=== PATIENT | female | born 2000 | race Two or more races ===

== ENCOUNTER 2025-01-14 | Emergency (ER) | payer MEDICAID, OTHER ==
[~2025-01-14] VITALS: Ht 160 cm; Wt 116.8 kg
[2025-01-14 00:59] VITALS: BP 132/87; PULSE 110; RESP 16; TEMP 99.2; O2SAT 97
--- NOTE | 2025-01-14 01:17 | DVH ---
CLINICAL INDICATION: injury/pain TECHNIQUE: XY R KNEE 3V XRAY Comparison: None FINDINGS / IMPRESSION: No evidence of acute fracture or dislocation. Prior ORIF of left tibial plateau fracture. Moderate me dial joint space narrowing and small marginal osteophytes.
[2025-01-14] MEDS ORDERED: METH4PAK PO (01:37)
[2025-01-14] MEDS ORDERED: TIZA-142 PO (01:37)
--- NOTE | 2025-01-14 01:37 | ED.PDOC ---
Back pain HPI HPI Comments PRESENTS TO ED FOR RIGHT KNEE PAIN DESCRIBED SHARP SHOOTING TYPE 6/10 WORSE ON MOVEMENT. REPORTS THAT SHE HAD RIGHT KNEE LIGAMENT REPAIR 2 YEARS AGO AND NOW THAT SHE HAS BEEN DRIVING, SHE CONSTANTLY HIT HER KNEE WHENEVER SHE GETS OUT OF THE CAR. NUMBNESS OR WEAKNESS OR ANY OTHER CONCERNS. Chief Complaint: Lower Extremity Time Seen by MD: 00:25 Reviewed Notes: Nurses Notes, Medications, Allergies Allergies: Coded Allergies: NO KNOWN ALLERGIES (Unverified , 01/14/25) Home Meds Discontinued Scripts Methylprednisolone (Medrol Dosepak) 4 Mg Al, 4 MG PO UD for 6 Days, #21 TAB UAD Prov:RAYNESG TESTER OPERATOR 01/14/25 Tizanidine Hydrochloride (Tizanidine Hcl) 4 Mg Tab, 4 MG PO BID PRN for 5 Days, #10 TAB Prov:SG MCLAIN [facility] 01/14/25 Information Source: Patient Mode of Arrival: Ambulatory Past Medical History PAST MEDICAL HISTORY: Denies Surgical History: Denies all surgeries ADMINISTRATOR OF HOME HEALTH History: No Pertinent ADMINISTRATOR OF HOME HEALTH History Family History Family History: Unknown Social History Smoker: Non-Smoker Alcohol: Denies ETOH Use Drugs: Denies Drug Use Constitutional: denies: chills, diaphoresis, fatigue, fever, malaise, sweats, weakness, others EENTM: denies: blurred vision, double vision, ear bleeding, ear discharge, ear drainage, ear pain, ear ringing, eye pain, eye redness, hearing loss, mouth pain, mouth swelling, nasal discharge, nose bleeding, nose congestion, nose pain, photophobia, tearing, throat pain, throat swelling, voice changes, others Cardiovascular: denies: chest pain, dizzy spells, diaphoresis, Dyspnea on exertion, edema, irregular heart beat, left arm pain, lightheadedness, palpitations, PND, syncope, others Gastrointestinal: denies: abdomen distended, abdominal pain, blood streaked bowels, constipated, diarrhea, dysphagia, difficulty swallowing, hematemesis, m parker, nausea, poor appetite, poor fluid intake, rectal bleeding, rectal pain, vomiting, others Genitourinary: denies: abnormal vagina bleeding, burning, dyspareunia, dysuria, flank pain, frequency, hematuria, incontinence, pain, , vagina discharge, urgency, others Neurological: denies: dizziness, fainting, headache, left sided numbness, left sided weakness, numbness, paresthesia, pre-existing deficit, right sided numbness, right sided weakness, seizure, speech problems, tingling, tremors, weakness, others Musculoskeletal: reports: others (Right knee pain); denies: back pain, gout, joint pain, joint swelling, muscle pain, muscle stiffness, neck pain Integumetry: denies: bruises, change in color, change in hair/nails, dryness, laceration, lesions, lumps, rash, wounds, others Allergic/Immunocompromised: denies: Difficulty Healing, Frequent Infections, Hives, Itching, others Hematologic/Lymphatic: denies: anemia, blood clots, easy bleeding, easy bruising, swollen glands, others Endocrine: denies: excessive hunger, excessive sweating, excessive thirst, excessive urination, flushing, intolerance to cold, intolerance to heat, unexplained weight gain, unexplained weight loss, others Psychiatric: denies: anxiety, bipolar disorder, depression, hopeless, panic disorder, schizophrenia, sleepless, suicidal, others Physical Exam General Appearance: No Apparent Distress, Normal HEENT: Pharynx Normal Neck: Full Range of Motion, Non-Tender Respiratory: Lungs Clear, No Respiratory Distress, Normal Breath Sounds Cardiovascular: No Murmur, Normal Peripheral Pulses, Regular Rate/Rhythm Breast Exam: Deferred Gastrointestinal: Non Tender, Soft Genitalia: Deferred Pelvic: Deferred Rectal: Deferred Extremities: Normal capillary refill, Normal inspection, Normal range of motion, Non-tender, No pedal edema Musculoskeletal : Location: Right Extremity Location: Knee (Edema about the knee. Negative Latesha's and dr giang test. No noted ballottement. Strength sensory motion intact. Positive pedal pulse.) Apperance: Normal Neurologic: Alert, customer service sales associate II-XII nml as Tested, No Motor Deficits, Normal Affect, Normal Mood, No Sensory Deficits Cerebellar Function: Normal Reflexes: Normal Skin: Dry, Normal Color, Warm Lymphatic: No Adenopathy Was a procedure done? Was a procedure done?: No Back Pain Differential Dx Differential Diagnosis: Fracture, Musculoskeletal Pain X-Ray, Labs, Meds, VS Vital Signs Date Time Temp Pulse Resp B/P (MAP) Pulse Ox O2 Delivery O2 Flow Rate FiO2 01/14/25 00:59 99.2 110 16 132/87 (102) 97 99.2 01/14/25 00:59 110 16 97 Room Air 01/14/25 00:15 99.2 110 16 132/87 (102) 97 99.2 Time of 1ST Reevaluation: 01:35 Reevaluation 1ST: Improved Patient Education/Counseling: Diagnosis, Treatment, Prognosis, Need For Follow Up Family Education/Counseling: No Family Present Departure 1 Departure Time of Disposition: 01:35 Impression: Primary Impression: Right knee sprain Qualified Codes: S83.501A - Sprain of unspecified cruciate ligament of right knee, initial encounter Disposition: 01 HOME / SELF CARE / HOMELESS Condition: Stable Discharged With: Self Critical Care Note Critical Care Time?: No Stability Stability form required: SG Gilbert Jan 14, 2025 01:37
[2025-01-14] MEDS: KETOROLAC TROMETH 60MG/2ML VIAL IM ONE (01:38)
== END 2025-01-14 01:56 | disposition home or self-care (01) ==
LOC: ER
DX: S83.91XA Sprain of unspecified site of right knee, initial encounter (principal); Z79.899 Other long term (current) drug therapy; X58.XXXA Exposure to other specified factors, initial encounter; Y93.89 Activity, other specified; Y92.89 Other specified places as the place of occurrence of the external cause; Y99.8 Other external cause status
CPT/HCPCS: 73562; 96372; 99283; J1885